=== PATIENT | female | born 1960 | race Caucasian/White ===

== ENCOUNTER → 2024-10-22 10:47 | Outpatient (REF) | payer BC, SELFPAY | LOC: HWWDC 10:47 | PROVIDERS: ATTENDING PHYSICIAN Nurse Practitioner Family | DX: Z12.31 Encounter for screening mammogram for malignant neoplasm of breast (principal) | CPT/HCPCS: 77063; 77067 ==

== ENCOUNTER → 2025-08-25 10:35 | Outpatient (REF) | payer BC, SELFPAY | LOC: HWRAD 10:35 | PROVIDERS: ATTENDING PHYSICIAN Nurse Practitioner Family | DX: Z00.00 Encounter for general adult medical examination without abnormal findings (principal); Z13.820 Encounter for screening for osteoporosis | CPT/HCPCS: 77080 ==